=== PATIENT | female | born 1975 ===

== ENCOUNTER → 2021-08-02 | Day surgery (SDC) | payer OTHER ==
[~2021-08-02] MED LIST: ATACAND16 MG PO; MORGIDOX100 MG PO; NAPR500T14 PO
== END | disposition home or self-care (01) ==
LOC: ADM 07-30 12:00 → CIR.AMB 07:36
PROVIDERS: ATTEND Obstetrics & Gynecology
DX: N84.0 Polyp of corpus uteri (principal); D25.0 Submucous leiomyoma of uterus; Z20.822 Contact with and (suspected) exposure to COVID-19